=== PATIENT | male | born 1960 | race Caucasian/White ===

== ENCOUNTER 2019-05-24 16:45 | Emergency (ER) | payer OTHER ==
[~2019-05-24] VITALS: Ht 175.3 cm; Wt 103.9 kg
[2019-05-24 17:11] VITALS: BP 190/110
--- NOTE | 2019-05-24 17:30 | NUR ---
58/M C/O ANXIETY AND FRONTAL HEADACHE AND MILD EPIGASTRIC PAIN. REPORTS MILD NAUSEA, DENIES VOMITING. DENIES CP, SOB. PT STATED THAT HE IS CONCERNED ABOUT WITHDRAWAL SYMPTOMS FROM BINGE DRINKING FROM ETOH, LAST DRINK 5 DAYS AGO. PT AOX4, GCS 15, PERRLA 3MM, SKIN NORMAL COLOR WARM AND DRY, RR EVEN AND UNLABORED. HX HYPOTHYROID, HIGH CHOLESTEROL, DEPRESSION, ANXIETY, SLEEP APNEA RX BUSPIRONE, CLONAZEPAM, FLUOXOTINE, QUETIAPINE, LEVOTHYROXINE, LISINOPRIL, AMLODPINE, SIMVASTATIN
[2019-05-24] MEDS ORDERED: LORazepam 2 MG/ML VIAL IVP ONE (17:35)
--- NOTE | 2019-05-24 17:43 | NUR ---
PT TO CT VIA WHEELCHAIR
[2019-05-24 17:54] LABS: APPEARANCE,URINE HAZY (CLEAR); BILIRUBIN,URINE 1+ (NEGATIVE); BLOOD, URINE 2+ (NEGATIVE); COLOR,URINE RED (YELLOW); LEUKOCYTE ESTERASE ,URINE NEGATIVE (NEGATIVE); NITRITE, URINE NEGATIVE (NEGATIVE); UGLUCOSE NEGATIVE (NEGATIVE)
--- NOTE | 2019-05-24 18:00 | NUR ---
PT STATED THAT HE IS NOT GOING TO DRIVE AFTER [facility]. PT STATED THAT HIS SPONSOR IS GOING TO PICK HIM UP.
[2019-05-24 18:21] LABS: BASOPHILS % (AUTO) 0.8 % (0.0-2.0); EOSINOPHILS # (AUTO) 0.2 K/uL (0-0.4); EOSINOPHILS % (AUTO) 2.7 % (0.0-4.0); HEMATOCRIT 42.2 % (36-52); HEMOGLOBIN 14.8 g/dL (12.0-18.0); LYMPHOCYTES # (AUTO) 1.3 K/uL (2.0-11.5); LYMPHOCYTES % (AUTO) 21.2 % (20.5-51.1); MEAN CORPUSCULAR HEMOGLOBIN 31 pg (27-31); MEAN CORPUSCULAR HGB CONC 35 g/dL (33-37); MEAN CORPUSCULAR VOLUME 89.3 fL (80-94); MONOCYTES # (AUTO) 0.7 K/uL (0.8-1.0); NEUTROPHILS % (AUTO) 64.3 % (42.2-75.2); PLATELET COUNT (AUTO) 203 K/uL (140-450); RED BLOOD CELL COUNT(AUTO) 4.73 MIL/uL (4.20-6.10); RED CELL DISTRIBUTION WIDTH 14.4 % (11.6-13.7); WHITE BLOOD COUNT (AUTO) 6.2 K/uL (4.8-10.8)
[2019-05-24 18:25] LABS: RBC,URINE 0-5 /HPF (0-5); WBC,URINE 0-5 /HPF (0-5)
[2019-05-24 18:43] LABS: ALBUMIN 3.8 g/dL (3.4-5.0); ANION GAP 13.8 (8-16); ASPARTATE AMINOTRANSFERASE 108 U/L (15-37); CARBON DIOXIDE 28.7 mmol/L (21-32); CHLORIDE 105 mmol/L (98-107); GFR ARICAN-AMERICAN 99 mL/min (>90); GLUCOSE 114 mg/dL (74-106); POTASSIUM 3.5 mmol/L (3.5-5.1); SODIUM SERUM 144 mmol/L (136-145); TOTAL BILIRUBIN 0.9 mg/dL (0.0-1.0); UREA NITROGEN, BLOOD 13 mg/dL (7-18)
[2019-05-24] MEDS ORDERED: ONDANSETRON 4 MG/2 ML VIAL IVP ONE (19:00)
[2019-05-24] MEDS ORDERED: MORPHINE SULFATE 4 MG/ML SYR IVP ONE (19:00)
[2019-05-24 19:27] VITALS: BP 169/91
--- NOTE | 2019-05-24 19:27 | NUR ---
Patient discharged with v/s stable-PT DID NOT TAKE BP MEDICATION THIS AM. Written and verbal after care instructions given and explained. Patient alert, oriented and verbalized understanding of instructions. Ambulatory with steady gait. All questions addressed prior to discharge. ID band removed. Patient advised to follow up with PMD. Rx of LIBRIUM given. Patient educated on indication of medication including possible reaction and side effects. Opportunity to ask questions provided and answered. PT GIVEN EXCUSE FOR WORK THROUGH TOMORROW PT STATES HIS RIDE IS ON THE WAY AND THAT HE WILL WAIT IN ER LOBBY UNTIL THEN, GIVEN SNACKS FOR THE WAIT
== END 2019-05-24 19:27 | disposition home or self-care (01) ==
LOC: MED 16:45
DX: I10 Essential (primary) hypertension (principal); F41.9 Anxiety disorder, unspecified; F32.9 Major depressive disorder, single episode, unspecified; E03.9 Hypothyroidism, unspecified
CPT/HCPCS: 36415; 70450; 80053; 81001; 85025; 96374; 96375; 99284; G0482; J2060; J2270; J2405